=== PATIENT | female | born 2000 | race Caucasian/White ===

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

== ENCOUNTER 2021-07-01 12:18 | Emergency (ER) | payer OTHER ==
[~2021-07-01 12:18] MED LIST: ANUCORT-HC25 MG PR; ANUSOL-HC30 GM PR; AUGMENTIN 875-1 EACH PO; COLACE100 MG PO; METROGEL 0.75%45 GM VG; METRONIDAZOLE500 MG PO; MIRALAX 238GM238 GM PO; NORCO 5-325 TA1 EACH PO; PRENATAL FORMU1 EACH PO
[2021-07-01 13:27] LABS: BASOPHIL 0.5 % (0-2); EOSINOPHIL 1.1 % (0-5); HCT 39.9 % (37.0-47.0); HGB 13.1 g/dl (12.5-16.0); LYMPHOCYTE 38.8 % (15-48); MCH 29.6 pg (25.0-31.0); MCHC 32.8 g/dL (32.0-36.0); MCV 90.1 fL (78.0-100.0); MONOCYTE 6.3 % (0-12); NEUTROPHIL 53.1 % (41-80); NRBC 0; PLT 283 K/uL (150-400); RBC 4.43 M/uL (4.20-5.40); RDW 12.8 % (11.5-14.0); WBC 6.2 K/uL (4.0-10.5)
[2021-07-01 13:39] LABS: ALBUMIN 3.7 g/dL (3.4-5.0); BILIRUBIN - TOTAL 0.2 mg/dL (0.2-1.0); BUN/CREAT RATIO (CALC) 16.9 RATIO; CREATININE 0.77 mg/dL (0.51-0.95); GLOBULIN (CALCULATION) 3.7 g/dL; POTASSIUM 4.3 mmol/L (3.5-5.1); TOTAL PROTEIN 7.4 g/dL (6.4-8.2)
[2021-07-01] MEDS ORDERED: CARAFATE1 GM PO (13:59)
[2021-07-01] MEDS ORDERED: PRILOSEC20 MG PO (13:59)
== END 2021-07-01 14:16 | disposition home or self-care (01) ==
LOC: FER 12:18
PROVIDERS: Nurse Practitioner Family
DX: R10.12 Left upper quadrant pain (principal); Z28.310 Unvaccinated for COVID-19
CPT/HCPCS: 36415; 80053; 85025; 99284